=== PATIENT | male | born 1975 ===

== ENCOUNTER 2016-07-21 15:26 | Emergency (ER) | payer OTHER ==
[2016-07-21] MEDS ORDERED: DIAZEPAM 5 MG/ML SYRINGE 2 ML ONE (15:59)
[2016-07-21 16:13] LABS: ABSOLUTE NEUTROPHIL COUNT 4.8 K/mm3 (1.8-7.7); BASO # 0.1 K/mm3 (0.0-0.2); BASO % 0.7 % (0.2-1.0); EOS % 0.2 % (0.9-2.9); HEMATOCRIT 48.5 % (32.0-52.0); HEMOGLOBIN 16.7 gm/l (14.0-18.0); IMM NEUT% 0.4 % (0-1); LYMPH % 35.6 % (15-45); MEAN CELL VOLUME 90.8 fl (80.0-94.0); MEAN CORPUSCULAR HEMOGLOBIN 31.3 pg (27.0-31.0); MEAN CORPUSCULAR HGB CONC 34.4 g/dl (33.0-37.0); MEAN PLATELET VOLUME 9.1 fl (7.4-10.4); MONO # 0.6 (0.0-0.8); MONO % 6.8 % (4-12); NEUT % 56.3 % (43-75); PLATELET COUNT 332 K/mm3 (130-400); RED CELL DISTRIBUTION WIDTH 13.2 % (11.5-14.5)
[2016-07-21 16:25] LABS: ALB/GLOB RATIO 1.5 (>1.0); ALBUMIN 4.6 gm/dL (3.5-5.7); CALCIUM 9.4 mg/dL (8.6-10.3)
== END 2016-07-21 17:29 | disposition home or self-care (01) ==
LOC: ED 15:26
DX: F10.129 Alcohol abuse with intoxication, unspecified (principal); R11.2 Nausea with vomiting, unspecified; Y90.6 Blood alcohol level of 120-199 mg/100 ml
CPT/HCPCS: 85025; 80053; 80307; 99283 ×2; 96374; J3360